=== PATIENT | female | born 1990 ===

== ENCOUNTER 2024-02-02 08:18 | Emergency (ER) | payer OTHER, SELFPAY ==
[2024-02-02 08:26] VITALS: BP 128/78; PULSE 93; RESP 18; TEMP 36.5; O2SAT 98; BMI 22.9
--- NOTE | 2024-02-02 09:07 | ED_ITS ---
HPI - General Adult General Chief complaint: General Medical Stated complaint: medication Time Seen by Provider: 02/02/24 09:05 Source: patient Mode of arrival: ambulatory Limitations: no limitations History of Present Illness ED Provider: Moshe Adrian PA-C HPI narrative: 33-year-old female with history of opioid use disorder, last use was 4 months ago, currently on Suboxone 8 mg b.i.d. who presents to the ER for Suboxone refill. She had 2 weeks worth earlier this month but has no one to refill it going forward. She is from [facility] in [place]. She reports last dose was 2 days ago and she is starting to feel unwell. she has been unable to get in with her PCP Dr. Felder. complaint: suboxone refill Onset (ago): day(s) Associated symptoms: other (anxiety) Related Data Previous Rx's ?Medication ?Instructions ?Recorded buprenorphine 8 mg-naloxone 2 mg 1 film buccal BID #4 ea 02/02/24 sublingual film (Suboxone) Allergies Allergy/AdvReac Type Severity Reaction Status Date / Time No Known Allergies Allergy Verified 02/02/24 08:28 Review of Systems Review of Systems: Yes all other systems are reviewed and are negative PMFSH Social History Social History Advance Directives: No Advance Directives Information Provided: No Physical Exam ED Vital Signs: Vital Signs - 24 hr 02/02/24 08:26 02/02/24 10:26 Temperature 97.7 F 98.0 F Pulse Rate 93 86 Respiratory Rate 18 18 Blood Pressure 128/78 121/72 Pulse Oximetry 98 98 Oxygen Delivery Method Room Air Room Air BMI result Body Mass Index 22.9 Appearance: Alert. Oriented X3. pleasant and cooperative, no diaphoresis HEENT: normal inspection CVS: Normal heart rate and rhythm. Pulses normal. Respiratory: No respiratory distress. speaking in complete sentences Skin: Skin warm and dry. Normal skin color. Normal skin turgor. No rashes. Extremities: normal external inspection Neuro: Oriented X 3. grossly normal nonfocal Medications Administered Discontinued Medications Generic Name Dose Route Start Last Admin Trade Name Freq PRN Reason Stop Dose Admin Buprenorphine/Naloxone 1 film 02/02/24 09:54 02/02/24 10:21 Buprenorphine/Naloxone 8/2 Mg Film SUBLINGUAL 02/02/24 09:55 1 film ONCE ONE Administration Medical Decision Making Medical Decision Making MDM Narrative: 33 yo very pleasant female with history of opioid use disorder on Suboxone 8 mg b.i.d. presenting for Suboxone refill. She reports her last dose was 2 days ago. No illicit substance use in the last 4 months. She is hemodynamically stable, appears well. Care team nurse able to verify dosing, spoke with both [facility] to confirm dosing. 8 mg provided here. [facility]. 4 additional films were prescribed to the patient's pharmacy for tonight, tomorrow and Sunday morning. Stable for discharge home with outpatient follow-up. Patient very thankful and grateful for care and follow-up provided today. Differential Diagnosis Differential Diagnoses: The differential diagnosis associated with the presentation includes opioid withdrawal, anxiety, opioid use disorder, polysubstance use Consult Healthcare Provider Management of the patient was discussed with: Behavioral Health Provider Susanne confirmed dosing with Melissa and staff at [facility] Prescription Management I considered prescription management with: Other (Suboxone) Chronic Conditions Patient?s care impacted by: Other (Opioid use disorder) Social Determinants Patient?s care significantly limited by Social Determinants of Health including: Problems related to primary support group and Other Social Determinant of Health Critical Care Time Critical Care Time Critical Care Time: No Discharge Plan Discharge Clinical Impression: Opioid use disorder Patient Disposition: Home, Self-Care Instructions: Opioid Use Disorder (ED) Additional Instructions: take your suboxone as prescribed follow up with the [facility] Sunday If you develop new or worsening symptoms call 911 or come back to the ER for further evaluation. Prescriptions: New buprenorphine-naloxone [Suboxone] 8-2 mg film 1 film buccal BID Qty: 4 0RF Referrals: [facility] [Provider Group] Interventions: ED Discharge Assessment Last Done: 02/02/24 10:26 Discharge Date/Time: 02/02/24 10:29 Print Language: Romanian
--- NOTE | 2024-02-02 09:18 | PC.NURSE ---
recovery team working on suboxone- provider is aware
[2024-02-02] MEDS: Buprenorphine/Naloxone 8/2 mg FILM 1 FILM SUBLINGUAL (10:21)
[2024-02-02 10:26] VITALS: BP 121/72; PULSE 86; RESP 18; TEMP 36.7; O2SAT 98
--- NOTE | 2024-02-02 10:27 | PC.NURSE ---
pt medicated per order and to discharge back to [facility] via lyft provided by recovery team
== END 2024-02-02 10:29 | disposition home or self-care (01) ==
PROVIDERS: Emergency Provider Emergency Medicine Emergency Medical Services
DX: F11.20 Opioid dependence, uncomplicated (principal)
CPT/HCPCS: 99282; 99283